=== PATIENT | female | born 1985 | race Caucasian/White ===

== ENCOUNTER 2020-07-26 08:41 | Emergency (ER) | payer MEDICAID ==
[~2020-07-26] VITALS: Ht 149.9 cm; Wt 78.2 kg
--- NOTE | 2020-07-26 09:04 | NUR ---
First contact with pt. Pt c/o uterine cramping and VB starting today at approximately 7am. Pt reports she is 9 weeks , . Pt sitting at edge of bed, reports this is position of comfort. Pt requesting juice to drink. Per PA pt to remain NPO until studies are complete. Pt verbalizes understanding, denies other needs.
[2020-07-26] MEDS ORDERED: SUMA25TA4 PO (09:15)
[2020-07-26] MEDS ORDERED: DULO20CA45 PO (09:15)
[2020-07-26] MEDS ORDERED: GABA600T7 PO (09:15)
[2020-07-26] MEDS ORDERED: AMLO-150 PO (09:15)
[2020-07-26] MEDS ORDERED: PROP20TA PO (09:15)
[2020-07-26 09:22] LABS: BASOPHILS % (AUTO) 1 % (0-1); EOSINOPHILS % (AUTO) 3 % (1-7); LYMPHOCYTES % (AUTO) 14 % (22-44); MEAN CORPUSCULAR HEMOGLOBIN 28.6 pg (27.0-34.8); MEAN CORPUSCULAR HGB CONC 32.8 g/dL (32.4-35.8); MEAN PLATELET VOLUME 8.1 fL (7.4-10.4); MONOCYTES % (AUTO) 8 % (2-9); NEUTROPHILS % (AUTO) 75 % (42-75); PLATELET COUNT 335 x10^3/uL (130-400); RED BLOOD COUNT 4.87 x10^6/uL (3.82-5.3); RED CELL DISTRIBUTION WIDTH 14.2 % (9.6-15.2)
[2020-07-26 09:23] LABS: MD NO
[2020-07-26 09:29] LABS: ALBUMIN 3.2 g/dL (3.4-5.0); ANION GAP 6 mmol/L (5-15); CALCIUM 8.9 mg/dL (8.5-10.1); CHLORIDE 109 mmol/L (98-107)
--- NOTE | 2020-07-26 09:40 | NUR ---
Pt ambulatory to bathroom with steady gait.
--- NOTE | 2020-07-26 10:21 | NUR ---
Pt resting in bed, looking at her phone, VAIBHAV, denies needs.
--- NOTE | 2020-07-26 10:31 | NUR ---
Pt to [place] via [facility] at this time. Pt encouraged to provide urine sample when she is able.
[2020-07-26 11:09] VITALS: BP 115/63
--- NOTE | 2020-07-26 11:09 | NUR ---
Pt back from [place], urine sample provided. Pt resting in bed watching TV. Pt provided warm blanket per request, denies other needs.
[2020-07-26 11:21] LABS: MICROSCOPIC INDICATED
--- NOTE | 2020-07-26 11:45 | NUR ---
Pt resting in bed watching TV, VAIBHAV. Pt provided orange juice and water per request, ok per Lucita SHARMA. POC discussed, pt denies other needs.
== END 2020-07-26 12:11 | disposition home or self-care (01) ==
LOC: ED 10:09
DX: O20.0 Threatened abortion (principal); R10.2 Pelvic and perineal pain; Z3A.01 Less than 8 weeks gestation of pregnancy
CPT/HCPCS: 36415; 76801; 80048; 81001; 82040; 84702; 85025; 86901; 87086; 99284